=== PATIENT | female | born 1960 | race Caucasian/White ===

== ENCOUNTER 2018-09-17 05:54 | Day surgery (SDC) | payer OTHER ==
[2018-09-17] MEDS: CYCLOPENTOLATE/PHENYLEPH 2 ML OPH OPER (06:34)
[2018-09-17] MEDS: MOXIFLOXACIN 0.5% 3 ML OPH OPER (06:35)
[2018-09-17] MEDS: TROPICAMIDE 1% 15 ML OPH OPER (06:35)
[2018-09-17] MEDS: DICLOFENAC 0.1% 2.5 ML OPH OPER (06:35)
[2018-09-17] MEDS: SOD CHLORIDE 0.9% 1,000 ML IV (06:36)
[2018-09-17] MEDS ORDERED: GENTAMICIN 80 MG INJ (06:45)
[2018-09-17] MEDS ORDERED: EPINEPHrine 1 MG INJ (06:45)
[2018-09-17] MEDS ORDERED: EPHEDrine SULFATE 50 MG/5 ML SYG (07:00)
[2018-09-17] MEDS ORDERED: SEVOFLURANE 15 MIN (07:00)
[2018-09-17] MEDS ORDERED: PROPOFOL 20 ML (07:36)
[2018-09-17] MEDS ORDERED: MIDAZOLAM 1 MG/ML 2 ML INJ (07:37)
[2018-09-17] MEDS ORDERED: FENTAnyl 50 MCG/ML VIAL (07:37)
[2018-09-17] MEDS ORDERED: PHENYLephrine (100 MCG/ML) 5ML SYG (07:44)
[2018-09-17] MEDS ORDERED: ONDANSETRON 4 MG INJ (07:54)
[2018-09-17] MEDS ORDERED: METOCLOPRAMIDE 10 MG INJ (07:54)
[2018-09-17] MEDS ORDERED: OXYCODONE/ACETAMINOPHEN (5/325) TAB PO (08:00)
[2018-09-17] MEDS ORDERED: METOCLOPRAMIDE 10 MG INJ IV (08:00)
[2018-09-17] MEDS ORDERED: MEPERIDINE 25 MG INJ IV (08:00)
[2018-09-17] MEDS ORDERED: HYDROmorphONE 1 MG/5 ML IV SYRINGE IV (08:00)
[2018-09-17] MEDS ORDERED: LABETALOL HCL 20MG INJ IV (08:00)
[2018-09-17] MEDS ORDERED: EPHEDrine SULFATE 50 MG/5 ML SYG IV (08:00)
[2018-09-17] MEDS ORDERED: FENTAnyl 50 MCG/ML VIAL IV ×2 (08:00)
[2018-09-17] MEDS: ONDANSETRON 4 MG INJ IV (08:44)
[2018-09-17] MEDS: HYDROmorphONE 1 MG/5 ML IV SYRINGE IV (08:44)
[2018-09-17] MEDS: LIDOCAINE 4% (MPF) 5 ML INJ (08:50)
[2018-09-17] MEDS: DEXAMETHASONE 4 MG/ML 1 ML INJ (08:50)
[2018-09-17] MEDS: CARBACHOL 0.01% 1.5 ML OPH INJ (08:50)
[2018-09-17] MEDS: TETRACAINE 0.5% 4 ML OPH (08:51)
[2018-09-17] MEDS: CEFAZOLIN 1 GM INJ INJ (08:52)
== END 2018-09-17 10:05 | disposition home or self-care (01) ==
LOC: SDS 05:54
DX: H26.8 Other specified cataract (principal); E11.9 Type 2 diabetes mellitus without complications; Q90.9 Down syndrome, unspecified
CPT/HCPCS: 66984; 82962

== ENCOUNTER 2019-01-18 21:14 | Emergency (ER) | payer OTHER | END 2019-01-19 00:33 | disposition home or self-care (01) | LOC: E/R 01-19 00:33 | DX: T49.7X1A Poisoning by dental drugs, topically applied, accidental (unintentional), initial encounter (principal); R40.2142 Coma scale, eyes open, spontaneous, at arrival to emergency department; R40.2352 Coma scale, best motor response, localizes pain, at arrival to emergency department; R40.2252 Coma scale, best verbal response, oriented, at arrival to emergency department; Z79.84 Long term (current) use of oral hypoglycemic drugs | CPT/HCPCS: 99282; Z7502 ==